=== PATIENT | male | born 1980 | race Caucasian/White ===

== ENCOUNTER 2022-05-05 10:33 | Emergency (ER) | payer OTHER ==
[2022-05-05] MEDS ORDERED: ORPHENADRINE 30 MG/ML 2 ML VIAL IM STA (11:46)
[2022-05-05] MEDS ORDERED: KETOROLAC 15 MG/ML 1 ML VIAL IM STA (11:46)
--- NOTE | 2022-05-05 11:50 | ED ---
Back Pain HPI - General Chief Complaint: Back Pain/Injury Stated Complaint: back pain Time Seen by Provider: 05/05/22 11:37 Source: patient, RN notes reviewed, old records reviewed Limitations: no limitations - History of Present Illness Initial Comments: 40-year-old male presents to the emergency room ambulatory with complaints of low back pain and left hip pain. Patient states he injured it 2 weeks ago lifting and was seen by [facility] on [address] where he had x-rays done and was prescribed Lidoderm patches and Robaxin. Patient states he has not had any pain relief. He is scheduled to see his primary care doctor on May 25 to request an MRI. He denies any bowel or bladder incontinence. MD Complaint: back pain -: week(s) (2) Similar Symptoms Previously: Yes Severity scale (1-10): 6 Quality: sharp Consistency: constant Improves With: none Worsens With: movement, sitting upright, walking, deep breaths/cough - Related Data Previous Rx's Medication Instructions Recorded Cyclobenzaprine [Flexeril] 10 mg PO TID PRN #15 tab 05/05/22 Ibuprofen [Motrin] 800 mg PO Q8H PRN #30 tab 05/05/22 Lidocaine 5% Patch [Lidoderm] 1 patch TOPICAL DAILY PRN #30 patch 05/05/22 Allergies Allergy/AdvReac Type Severity Reaction Status Date / Time cefaclor [From Ceclor] Allergy Rash/Hives Verified 05/05/22 10:43 morphine Allergy Hallucinati Verified 05/05/22 10:43 ons Review of Systems ROS Statement: Those systems with pertinent positive or pertinent negative responses have been documented in the HPI. ROS Other: All systems not noted in ROS Statement are negative. Past Medical History Additional Past Medical History / Comment(s): Back, Migraines History of Any Multi-Drug Resistant Organisms: None Reported Past Surgical History: Orthopedic Surgery Past Psychological History: No Psychological Hx Reported Smoking Status: Current every day smoker Past Alcohol Use History: None Reported Past Drug Use History: None Reported General Exam Limitations: no limitations General appearance: alert, in no apparent distress Head exam: Present: atraumatic Eye exam: Absent: scleral icterus, conjunctival injection, periorbital swelling Neck exam: Absent: meningismus Respiratory exam: Absent: respiratory distress, accessory muscle use Cardiovascular Exam: Present: regular rate Back exam: Present: normal inspection, tenderness, muscle spasm, paraspinal tenderness (LS spine). Absent: CVA tenderness (R), CVA tenderness (L), rash noted Neurological exam: Present: alert, oriented X3, other (Shuffling gait related to pain) Psychiatric exam: Present: normal affect, normal mood. Absent: agitated, anxious, flat affect, manic Skin exam: Present: warm, dry, normal color. Absent: cyanosis, diaphoretic, petechiae Course Vital Signs 05/05/22 05/05/22 10:40 13:14 Temperature 97.6 F 98.1 F Pulse Rate 93 70 Respiratory 20 17 Rate Blood Pressure 129/80 133/75 O2 Sat by Pulse 99 99 Oximetry Medical Decision Making - Medical Decision Making Records were obtained from [place] emergency room. X-ray lumbar sacral spine was performed showing no acute fractures. Vertebral disc spaces and spinous processes intact. Sacroiliac joints are normal. Patient was given Norflex and Toradol injections for pain. The patient is ambulatory with no bowel or bladder incontinence. No fevers. No red flag symptoms. Vital signs are stable. He states that he does have Robaxin at home which has not been helping. He was given a prescription for Flexeril directed not to take the Robaxin. He also given a refill on Lidoderm patches and Motrin. Instructed to keep his appointment as scheduled with his doctor coming up for MRI. Return to emergency room if any new or concerning symptoms. Case discussed with Dr. Cuadra Disposition Clinical Impression: Back pain Disposition: HOME SELF-CARE Condition: Good Instructions (If sedation given, give patient instructions): Acute Low Back Pain (ED) Additional Instructions: Use Lidoderm patches as prescribed for the back pain. Continue Tylenol and Motrin in addition to Flexeril. Do not take Robaxin and Flexeril together. Ciaran lord your appointment as scheduled with your doctor for continuation of care. The emergency room with any new or concerning symptoms including inability to ambulate or bowel or bladder incontinence. Prescriptions: Cyclobenzaprine [Flexeril] 10 mg PO TID PRN #15 tab PRN Reason: Muscle Spasm Lidocaine 5% Patch [Lidoderm] 1 patch TOPICAL DAILY PRN #30 patch PRN Reason: Pain Ibuprofen [Motrin] 800 mg PO Q8H PRN #30 tab PRN Reason: Pain Is patient prescribed a controlled substance at d/c from ED?: No Referrals: Nonstaff,Physician [Primary Care Provider] - 1-2 days Rufina Alvarez DO [Doctor of Osteopathic Medicine] - 1-2 days Time of Disposition: 13:02
[2022-05-05 13:14] VITALS: BP 133/75; PULSE 70; RESP 17; TEMP 98.1
== END 2022-05-05 13:14 | disposition home or self-care (01) ==
LOC: EC 10:33
DX: M54.50 Low back pain, unspecified (principal); M25.552 Pain in left hip; F17.200 Nicotine dependence, unspecified, uncomplicated; Z88.1 Allergy status to other antibiotic agents; Z88.6 Allergy status to analgesic agent
CPT/HCPCS: 99283; 96372; J2360; J1885